=== PATIENT | female | born 1995 | race African-American/Black ===

== ENCOUNTER 2017-02-28 07:46 | Day surgery (SDC) | payer OTHER ==
[2017-02-24 12:47] VITALS: BMI 30.5
--- NOTE | 2017-02-28 09:33 | HP ---
History & Physical Update - History History: No Change - Physical Physical: No Change - Assessment Assessment: No Change - Plan Plan: No Change (Patient was asked to place Cytotec vaginally in preparation for this procedure. She did not do as asked)
[2017-02-28] MEDS ORDERED: oxyCODONE HCL 5 MG TABLET PO PRN ×2 (10:49→10:57)
[2017-02-28] MEDS ORDERED: IBUPROFEN 800 MG/8 ML IJ IVPB PRN (10:49)
[2017-02-28] MEDS ORDERED: IBUPROFEN 600 MG TABLET (FP) PO PRN (10:49)
[2017-02-28] MEDS ORDERED: ONDANSETRON 4 MG/2 ML VIAL IVPB PRN (10:49)
--- NOTE | 2017-02-28 10:49 | OP ---
Operative Note - Note: Operative Date: 02/28/17 Pre-Operative Diagnosis: 21 yo with menometrorrhagia, anemia Operation: Hysteroscopy, Polypectomy, D&C Findings: Multiple endometrial polyps, overgrown endometrium Post-Operative Diagnosis: Same as Pre-op Surgeon: Amaya Casey Anesthesiologist/F[employer] CROPS: Eran Cheung Anesthesia: Spinal Estimated Blood Loss (mls): 0 Instrument used (Debridements only): TruClear Drains, Volume Out (mls): 200 Fluid Volume Replaced (mls): 900 Operative Report Dictated: Yes
[2017-02-28] MEDS ORDERED: PROMETHAZINE HCL 25 MG/1 ML VIAL IVPUSH PRN (10:57)
[2017-02-28] MEDS ORDERED: ONDANSETRON 4 MG/2 ML VIAL IVPUSH PRN (10:57)
[2017-02-28] MEDS ORDERED: ELECTROLYTE-148 SOLN 1,000 ML IV SCH (11:00)
[2017-02-28 11:55] VITALS: TEMP 98.1
[2017-02-28 15:33] VITALS: BP 128/68; PULSE 72
--- NOTE | 2017-03-01 16:10 | PATH ---
Surgical Pathology Report Patient Name: [facility]ADALUPE SIMPSON [facility]. Rec. #: [id number] /Age/Gender: 1995 (Age: 21) / F Account: [id number] Location: [facility] SUR[facility]ICAL Taken: 02/28/2017 Received: 02/28/2017 Reported: 03/01/2017 Physicians: Amaya Casey M.D. Specimen(s) Received A: ENDOMETRIAL CURETTINGS B: POLYPS X3 ENDOMETRIAL Clinical History Dysfunctional uterine bleeding Final Diagnosis A. ENDOMETRIUM, CURETTAGE: ENDOMETRIAL POLYP, PROLIFERATIVE ENDOMETRIUM, BENIGN ENDOCERVICAL TISSUE. B. ENDOMETRIAL POLYPS, CURETTAGE: ENDOMETRIAL POLYP(S). Electronically Signed Carli Morton M.D. Gross Description A. Received in formalin labeled "endometrial curettings," is a 3.8 x 3.0 x 0.5 cm aggregate of calderon red soft tissue fragments admixed with blood clot. The formalin is filtered and the specimen is entirely submitted in 2 cassettes. B. Received in formalin labeled "polyp," is a 2.5 x 2.0 x 0.2 cm aggregate of calderon-pink soft tissue fragments. The formalin is filtered and the specimen is entirely submitted in one cassette. /02/28/201702/28/2017
--- NOTE | 2017-03-06 13:38 | OP ---
DATE OF OPERATION: 03/10/2017 PREOPERATIVE DIAGNOSES: A 21-year-old with menometrorrhagia and anemia. POSTOPERATIVE DIAGNOSES: A 21-year-old with menometrorrhagia and anemia and endometrial polyps. OPERATION: Hysteroscopy, polypectomy, dilation and curettage. FINDINGS: Multiple endometrial polyps and overgrown endometrium. SURGEON: Amaya Casey MD ANESTHESIOLOGIST: Eran Cheung MD ANESTHESIA: Spinal. DESCRIPTION OF THE OPERATIVE PROCEDURE: After assuring informed consent, patient was brought to the operating room. After the spinal anesthesia was administered, patient was placed in dorsal lithotomy position. Perineum was prepped and draped in sterile fashion. Anterior cervical lip was articulated with a single-toothed tenaculum and cervix was dilated gradually with increasing in size dilators to accommodate 5-mm hysteroscope. The full survey of the uterine cavity was performed, which identified 3 anterior wall polyps. The TruClear device was used to bring through the hysteroscope and remove and resect polyps. Subsequently, the hysteroscope was removed from the uterus and gentle curettage was performed to remove overgrown endometrial lining. It was noted during the procedure that cervix was very poorly holding the fluid inside the uterine cavity and a large amount of fluid was egressing through the cervix and onto the drapes and the floor; however, procedure was completed successfully. Fluid deficit was zero. Estimated blood loss was zero. The patient's bladder was emptied at the beginning of the procedure with 200 mL of urine. Patient received 900 mL of intraoperative IV fluids. All instruments were removed from the cervix and the vagina. The patient was found to be hemostatic. All instruments and sponge counts were correct x2. The patient was brought to the recovery room in stable condition. Gerard [id number]
== END 2017-02-28 15:41 | disposition home or self-care (01) ==
LOC: JASU-SURG 07:46
PROVIDERS: ATTEND Obstetrics & Gynecology
PROC: 0UB98ZX Excision of Uterus, Via Natural or Artificial Opening Endoscopic, Diagnostic (ICD-10-PCS; principal; 2017-02-28 09:00)
PROC: 0UDB8ZX Extraction of Endometrium, Via Natural or Artificial Opening Endoscopic, Diagnostic (ICD-10-PCS; 2017-02-28 09:00)
DX: N92.1 Excessive and frequent menstruation with irregular cycle (principal); D64.9 Anemia, unspecified; N84.0 Polyp of corpus uteri
CPT/HCPCS: 36415; 84703; 88142; 88305-TC; 94760